=== PATIENT | male | born 1935 | race Caucasian/White ===

== ENCOUNTER 2017-05-06 00:33 | Observation (INO) | payer OTHER ==
[~2017-05-06] VITALS: Ht 177.8 cm; Wt 90.0 kg
[~2017-05-06 00:33] MED LIST: ASPIRIN325 MG PO; CARDIZEM120 MG PO; CRESTOR40 MG PO; Ecotrin PO; HYDROCHLOROTHIA25 MG PO; Hydrodiuril,Oretic,E PO; IMDUR60 MG PO; ISOSORBIDE MON120 M1 PO; ISOSORBIDE MONO60 MG PO; Imdur PO; KEFLEX500 MG PO; LIPITOR80 MG PO; LO-DOSE ASPIRIN81 M2 PO; LOPRESSOR50 MG PO; METOPROLOL PO; NITRO-DUR1 EACH TD; NITROSTAT0.4 MG SL; Nitrostat,NitroQuick SL; PANTOPRAZOLE SO40 MG PO; PLAVIX75 MG; PLAVIX75 MG PO; PRINIVIL20 MG PO; PROTONIX40 MG PO; Plavix PO; Protonix PO; RANEXA500 MG PO; Ranexa PO
[2017-05-06 01:54] LABS: EOSINOPHIL (%) 1.5 % (0-5); EOSINOPHIL COUNT 0.1 K/uL (0-0.3); HEMATOCRIT 38.7 % (38.0-50.0); IMMATURE GRANULOCYTE (%) 0.3 % (0.0-0.7); INSTRUMENT ABS NEUTROPHIL CT 4.8 K/uL; LYMPHOCYTE COUNT 1.8 K/uL (1.0-2.8); MCH 30.8 PG (29.0-34.0); MCHC 33.9 G/DL (30.0-36.0); MCV 90.8 FL (86-99); MEAN PLAT.VOLUME 9.4 uM^3 (9.0-12.4); MONOCYTE (%) 7.3 % (3-12); MONOCYTE COUNT 0.5 K/uL (0-0.8); NEUTROPHIL (%) 65.8 % (45-76); NEUTROPHIL COUNT 4.8 K/uL (1.8-6.4); PLATELET COUNT 184 K/uL (156-360); RBC DIS.WIDTH-CV 12.9 % (11.8-14.6); RBC DIS.WIDTH-SD 42.2 % (39-53); RED BLOOD COUNT 4.26 M/uL (4.00-5.50); WHITE BLOOD COUNT 7.3 K/uL (4.1-10.2)
[2017-05-06 02:01] LABS: INTER. NORMALIZED RATIO 1.1; PROTHROMBIN TIME 11.7 SEC (10.2-12.9)
[2017-05-06 02:03] LABS: CHLORIDE 106 mEq/L (99-109); POTASSIUM 4.3 mEq/L (3.7-5.4)
[2017-05-06 02:04] LABS: PTT 34.2 SEC (25-37); SODIUM 138 mEq/L (136-147)
[2017-05-06 02:05] LABS: GLUCOSE 101 mg/dL (70-99)
[2017-05-06 02:07] LABS: ANION GAP 10 MEQ/L (2-14)
[2017-05-06 02:09] LABS: GFR ESTIMATE (CALCULATED) 48 mL/min/
[2017-05-06 02:10] LABS: UREA NITROGEN (BUN) 21 mg/dL (9-23)
[2017-05-06 02:17] LABS: TROP-I INTERPRETATION NEGATIVE; TROPONIN-I < 0.01 ng/mL (0.0-0.30)
[2017-05-06 04:52] VITALS: BP 159/72
[2017-05-06 05:37] LABS: TROP-I INTERPRETATION NEGATIVE; TROPONIN-I < 0.01 ng/mL (0.0-0.30)
[2017-05-06 06:56] VITALS: BP 110/55
[2017-05-06 12:01] LABS: TROP-I INTERPRETATION NEGATIVE; TROPONIN-I < 0.01 ng/mL (0.0-0.30)
[2017-05-06 12:05] VITALS: BP 134/66
[2017-05-06] MEDS ORDERED: FEOSOL325 MG PO (15:39)
[2017-05-06 16:04] VITALS: BP 106/59
== END 2017-05-06 17:49 | disposition home or self-care (01) ==
LOC: EME 00:33 → EDOF 03:38 → ENRESERV 03:44 → 5WEST 04:47
PROVIDERS: Emergency Medicine; Hospitalist
DX: R07.9 Chest pain, unspecified (principal); I25.118 Atherosclerotic heart disease of native coronary artery with other forms of angina pectoris; Z95.5 Presence of coronary angioplasty implant and graft; Z95.0 Presence of cardiac pacemaker; Z95.1 Presence of aortocoronary bypass graft; I12.9 Hypertensive chronic kidney disease with stage 1 through stage 4 chronic kidney disease, or unspecified chronic kidney disease; N18.3 Chronic kidney disease, stage 3 (moderate); I49.5 Sick sinus syndrome; E78.5 Hyperlipidemia, unspecified; Z79.82 Long term (current) use of aspirin; Z91.018 Allergy to other foods
CPT/HCPCS: 71010; 80048; 84484; 85025; 85379; 85610; 85730; 93005; 99281; 99285; G0378; J1644

== ENCOUNTER 2017-08-22 16:55 | Observation (INO) | payer OTHER ==
[~2017-08-22] VITALS: Ht 177.8 cm; Wt 90.1 kg
[~2017-08-22 16:55] MED LIST changes: +FEOSOL325 MG PO
[2017-08-22 17:41] LABS: HEMATOCRIT 38.8 % (38.0-50.0); MCH 31.9 PG (29.0-34.0); MCHC 34.3 G/DL (30.0-36.0); MEAN PLAT.VOLUME 9.9 uM^3 (9.0-12.4); PLATELET COUNT 209 K/uL (156-360); RBC DIS.WIDTH-CV 12.4 % (11.8-14.6); RBC DIS.WIDTH-SD 42.4 % (39-53); RED BLOOD COUNT 4.17 M/uL (4.00-5.50); WHITE BLOOD COUNT 5.5 K/uL (4.1-10.2)
[2017-08-22 17:53] LABS: CHLORIDE 106 mEq/L (99-109); POTASSIUM 4.7 mEq/L (3.7-5.4); SODIUM 140 mEq/L (136-147)
[2017-08-22 17:54] LABS: GLUCOSE 102 mg/dL (70-99)
[2017-08-22 17:56] LABS: ANION GAP 10 MEQ/L (2-14)
[2017-08-22 17:58] LABS: GFR ESTIMATE (CALCULATED) 48 mL/min/
[2017-08-22 17:59] LABS: UREA NITROGEN (BUN) 18 mg/dL (9-23)
[2017-08-22 18:02] LABS: TROP-I INTERPRETATION NEGATIVE; TROPONIN-I < 0.01 ng/mL (0.0-0.30)
[2017-08-22] MEDS ORDERED: AMLODIPINE BESYL5 MG PO (20:47)
[2017-08-22 21:46] VITALS: BP 182/84
[2017-08-22 23:39] VITALS: BP 163/72
[2017-08-23 01:07] LABS: TROP-I INTERPRETATION NEGATIVE; TROPONIN-I < 0.01 ng/mL (0.0-0.30)
[2017-08-23 03:28] VITALS: BP 166/73
[2017-08-23 05:59] LABS: TROP-I INTERPRETATION NEGATIVE; TROPONIN-I < 0.01 ng/mL (0.0-0.30)
[2017-08-23 06:16] LABS: ANION GAP 8 MEQ/L (2-14); CHLORIDE 106 MEQ/L (99-109); GFR ESTIMATE (CALCULATED) 56 mL/min/; GLUCOSE 115 mg/dL (70-99); HDL CHOLESTEROL 22 MG/DL (Desirable>=40); LDL CHOLESTEROL 76 mg/dL (Desirable<100); NON-HDL CHOLESTEROL 112 mg/dL (Desirable<160); POTASSIUM 4.4 MEQ/L (3.7-5.4); SAMPLE HEMOLYSIS CHECK 0; SAMPLE ICTERIC CHECK 0; SAMPLE LIPEMIA CHECK 0; SODIUM 140 MEQ/L (136-147); TOTAL CHOLESTEROL 134 mg/dL (Desirable<200); TRIGLYCERIDES 181 MG/DL (Normal: <150); UREA NITROGEN (BUN) 15 mg/dL (9-23)
[2017-08-23 07:25] VITALS: BP 154/70
[2017-08-23 11:52] VITALS: BP 115/56
[2017-08-23 12:17] VITALS: BP 123/61
== END 2017-08-23 15:26 | disposition home or self-care (01) ==
LOC: EME 16:55 → EDOF 20:37 → 5WEST 20:37 → ENRESERV 20:39 → 5WEST 21:16
PROVIDERS: Emergency Medicine; Family Medicine
DX: I25.118 Atherosclerotic heart disease of native coronary artery with other forms of angina pectoris (principal); Z95.1 Presence of aortocoronary bypass graft; Z95.5 Presence of coronary angioplasty implant and graft; I13.10 Hypertensive heart and chronic kidney disease without heart failure, with stage 1 through stage 4 chronic kidney disease, or unspecified chronic kidney disease; N18.3 Chronic kidney disease, stage 3 (moderate); E78.5 Hyperlipidemia, unspecified; I65.29 Occlusion and stenosis of unspecified carotid artery; I48.0 Paroxysmal atrial fibrillation; I49.5 Sick sinus syndrome; Z95.0 Presence of cardiac pacemaker; Z91.018 Allergy to other foods
CPT/HCPCS: 71020; 80048; 80061; 84484; 85027; 93005; 99281; 99285; G0378; J0360; J1644

== ENCOUNTER 2017-11-10 22:28 | Observation (INO) | payer OTHER ==
[~2017-11-10] VITALS: Ht 180.3 cm; Wt 92.5 kg
[~2017-11-10 22:28] MED LIST changes: +AMLODIPINE BESYL5 MG PO
[2017-11-10 22:56] LABS: HEMATOCRIT 36.2 % (38.0-50.0); HEMOGLOBIN 12.3 G/DL (12.5-16.6); MCH 31.9 PG (29.0-34.0); PLATELET COUNT 182 K/uL (156-360); RBC DIS.WIDTH-CV 12.9 % (11.8-14.6); RBC DIS.WIDTH-SD 43.9 % (39-53); RED BLOOD COUNT 3.85 M/uL (4.00-5.50); WHITE BLOOD COUNT 7.5 K/uL (4.1-10.2)
[2017-11-10] MEDS ORDERED: TIAZAC120 MG PO (22:58)
[2017-11-10] MEDS ORDERED: ZESTRIL40 MG PO (22:58)
[2017-11-10] MEDS ORDERED: NITRO-DUR1 EAC1 TD (22:59)
[2017-11-10] MEDS ORDERED: LOPRESSOR50 MG PO (23:00)
[2017-11-10] MEDS ORDERED: MIRALAX17 GM PO (23:01)
[2017-11-10] MEDS ORDERED: B-121000 MC2 PO (23:01)
[2017-11-10 23:08] LABS: CHLORIDE 108 mEq/L (99-109); POTASSIUM 4.2 mEq/L (3.7-5.4); SODIUM 140 mEq/L (136-147)
[2017-11-10 23:10] LABS: GLUCOSE 114 mg/dL (70-99)
[2017-11-10 23:14] LABS: CREATININE 1.6 mg/dL (0.6-1.3); GFR ESTIMATE (CALCULATED) 44 mL/min/ (58.99-99999)
[2017-11-10 23:15] LABS: UREA NITROGEN (BUN) 24 mg/dL (9-23)
[2017-11-10 23:19] LABS: TROP-I INTERPRETATION NEGATIVE; TROPONIN-I 0.02 ng/mL (0.0-0.30)
[2017-11-10] MEDS ORDERED: NITRO-DUR1 EACH TD (23:26)
[2017-11-11 02:26] VITALS: BP 161/75
[2017-11-11 07:14] LABS: TROP-I INTERPRETATION NEGATIVE; TROPONIN-I 0.02 ng/mL (0.0-0.30)
[2017-11-11 08:08] VITALS: BP 147/67
[2017-11-11 11:36] VITALS: BP 124/58
[2017-11-11 12:57] LABS: TROP-I INTERPRETATION NEGATIVE; TROPONIN-I 0.01 ng/mL (0.0-0.30)
== END 2017-11-11 14:22 | disposition home or self-care (01) ==
LOC: EME 22:28 → EDOF 11-11 00:45 → ENRESERV 11-11 00:48 → 5WEST 11-11 02:19
PROVIDERS: Emergency Medicine; Physician Assistant Medical
DX: I25.118 Atherosclerotic heart disease of native coronary artery with other forms of angina pectoris (principal); E78.5 Hyperlipidemia, unspecified; I13.10 Hypertensive heart and chronic kidney disease without heart failure, with stage 1 through stage 4 chronic kidney disease, or unspecified chronic kidney disease; I35.0 Nonrheumatic aortic (valve) stenosis; I48.0 Paroxysmal atrial fibrillation; J44.9 Chronic obstructive pulmonary disease, unspecified; K21.9 Gastro-esophageal reflux disease without esophagitis; N18.3 Chronic kidney disease, stage 3 (moderate); Z79.82 Long term (current) use of aspirin; Z95.0 Presence of cardiac pacemaker; Z95.1 Presence of aortocoronary bypass graft; Z95.5 Presence of coronary angioplasty implant and graft; Z79.02 Long term (current) use of antithrombotics/antiplatelets
CPT/HCPCS: 71046; 80048; 84484; 85027; 93005; 99281; 99285; G0378; J1644; J2270; J2405

== ENCOUNTER 2018-02-18 18:44 | Observation (INO) | payer OTHER ==
[~2018-02-18] VITALS: Ht 177.8 cm; Wt 92.9 kg
[~2018-02-18 18:44] MED LIST changes: +B-121000 MC2 PO; +MIRALAX17 GM PO; +NITRO-DUR1 EAC1 TD; +TIAZAC120 MG PO; +ZESTRIL40 MG PO
[2018-02-18 19:44] LABS: HEMATOCRIT 37.4 % (38.0-50.0); HEMOGLOBIN 12.8 G/DL (12.5-16.6); MCH 31.8 PG (29.0-34.0); MCHC 34.2 G/DL (30.0-36.0); PLATELET COUNT 216 K/uL (156-360); RBC DIS.WIDTH-CV 12.8 % (11.8-14.6); RBC DIS.WIDTH-SD 43.9 % (39-53); RED BLOOD COUNT 4.02 M/uL (4.00-5.50); WHITE BLOOD COUNT 5.3 K/uL (4.1-10.2)
[2018-02-18 19:53] LABS: CHLORIDE 105 mEq/L (99-109); POTASSIUM 4.7 mEq/L (3.7-5.4); SODIUM 139 mEq/L (136-147)
[2018-02-18 19:54] LABS: GLUCOSE 89 mg/dL (70-99)
[2018-02-18 19:58] LABS: CREATININE 1.5 mg/dL (0.6-1.3); GFR ESTIMATE (CALCULATED) 48 mL/min/ (58.99-99999)
[2018-02-18 19:59] LABS: UREA NITROGEN (BUN) 16 mg/dL (9-23)
[2018-02-18 20:10] LABS: TROP-I INTERPRETATION NEGATIVE; TROPONIN-I 0.01 ng/mL (0.0-0.30)
[2018-02-19 01:31] VITALS: BP 185/85
[2018-02-19 03:26] VITALS: BP 173/77
[2018-02-19 05:24] LABS: TROP-I INTERPRETATION NEGATIVE; TROPONIN-I 0.01 ng/mL (0.0-0.30)
[2018-02-19 07:52] VITALS: BP 144/70
[2018-02-19 08:52] VITALS: BP 140/70
[2018-02-19 11:40] VITALS: BP 152/70
[2018-02-19 12:43] LABS: TROP-I INTERPRETATION NEGATIVE; TROPONIN-I 0.01 ng/mL (0.0-0.30)
[2018-02-19 15:56] VITALS: BP 123/60
== END 2018-02-19 16:16 | disposition home or self-care (01) ==
LOC: EME 18:44 → EDOF 22:48 → 4SOUTH 22:48 → ENRESERV 23:03 → 4SOUTH 02-19 01:20
PROVIDERS: Hospitalist
DX: I25.118 Atherosclerotic heart disease of native coronary artery with other forms of angina pectoris (principal); I12.9 Hypertensive chronic kidney disease with stage 1 through stage 4 chronic kidney disease, or unspecified chronic kidney disease; N18.3 Chronic kidney disease, stage 3 (moderate); I25.2 Old myocardial infarction; Z95.1 Presence of aortocoronary bypass graft; Z95.5 Presence of coronary angioplasty implant and graft; E78.5 Hyperlipidemia, unspecified; I49.5 Sick sinus syndrome; Z95.0 Presence of cardiac pacemaker; I48.0 Paroxysmal atrial fibrillation; I65.23 Occlusion and stenosis of bilateral carotid arteries; J44.9 Chronic obstructive pulmonary disease, unspecified; Z86.74 Personal history of sudden cardiac arrest; I49.01 Ventricular fibrillation; D64.9 Anemia, unspecified; Z82.49 Family history of ischemic heart disease and other diseases of the circulatory system
CPT/HCPCS: 71046; 78582; 80048; 84484; 85027; 93005; 99281; 99285; A9540; A9567; G0378; J1650